=== PATIENT | female | born 1990 | race Caucasian/White ===

== ENCOUNTER 2016-11-26 07:22 | Inpatient (IN) | payer BC ==
[~2016-11-26] VITALS: Ht 160 cm; Wt 85.3 kg
[2016-11-26] VITALS (9 sets, daily range): BP systolic 94–144; RESP 18–20; TEMP 99.6; Ht 160 cm; Wt 85.3 kg
[2016-11-26] MEDS ORDERED: PROMETHAZINE 25 MG/ML VIAL IV PRN (07:30)
[2016-11-26] MEDS ORDERED: FAMOTIDINE 20 MG INJ IV PRN (07:30)
[2016-11-26] MEDS ORDERED: CEFAZOLIN (LD/OB) 100 ML IV PRN (07:30)
[2016-11-26] MEDS ORDERED: OXYTOCIN 15 UNITS/250 ML NS 15 UNITS in PART FILL PIGGYBACK 1 EA IV SCH (07:30)
[2016-11-26] MEDS ORDERED: OXYTOCIN 15 UNITS/250 ML NS 250 ML IV SCH (07:30)
[2016-11-26] MEDS ORDERED: LIDOCAINE 1% 30 ML PF INFILTRATE ONE (07:30)
[2016-11-26] MEDS ORDERED: TERBUTALINE 1 MG/ML VIAL SUBQ PRN (07:30)
[2016-11-26] MEDS ORDERED: LIDOCAINE 1% BUFFERED 1 ML SYR INTRADERM PRN (07:30)
[2016-11-26] MEDS ORDERED: ACETAMINOPHEN 325 MG TAB PO PRN (07:30)
[2016-11-26] MEDS ORDERED: FAMOTIDINE 20 MG TAB PO PRN (07:30)
[2016-11-26] MEDS ORDERED: ONDANSETRON 4 MG VIAL IV PRN (07:30)
[2016-11-26] MEDS ORDERED: METOCLOPRAMIDE 10 MG/2 ML VIAL IV PUSH PRN (07:30)
[2016-11-26] MEDS ORDERED: ALU/MAG/SIM 30 ML UDC PO PRN (07:30)
[2016-11-26] MEDS ORDERED: MORPHINE 5 MG/1 ML VIAL IV PRN (07:30)
[2016-11-26] MEDS ORDERED: OXYTOCIN 15 UNITS/250 ML NS 500 ML IV ONE (08:40)
[2016-11-26] MEDS ORDERED: LIDOCAINE 1% 30 ML PF ONE (08:41)
[2016-11-26] MEDS ORDERED: ROPIV/FENT 0.2%-2MCG/ML 100 ML EPIDURAL ONE (08:55)
[2016-11-26] MEDS ORDERED: FENTANYL 100 MCG/2 ML AMP ONE (08:56)
[2016-11-26] MEDS: LACT RINGERS 1,000 ML IV SCH ×2 (09:04→10:00)
[2016-11-26] MEDS ORDERED: SODIUM CHLORIDE 0.9% 500 ML IV PRN (09:55)
[2016-11-26] MEDS ORDERED: ROPIV/FENT 0.2%-2MCG/ML 100 ML EPIDURAL SCH (09:55)
[2016-11-26] MEDS ORDERED: FENTANYL 100 MCG/2 ML AMP EPIDURAL ONE (09:55)
[2016-11-26] MEDS ORDERED: LACT RINGERS 500 ML IV PRN (09:55)
[2016-11-26] MEDS ORDERED: LACT RINGERS 500 ML IV ONE (09:55)
[2016-11-26] MEDS: MISOPROSTOL 200 MCG TAB PO SCH ×2 (16:40→20:07)
[2016-11-26] MEDS ORDERED: DERMOPLAST SPRAY TOPICAL PRN (17:10)
[2016-11-26] MEDS ORDERED: OXYTOCIN 15 UNITS/250 ML NS 250 ML IV ONE (17:10)
[2016-11-26] MEDS ORDERED: ASTRINGENT MED PADS 40'S TOPICAL PRN (17:10)
[2016-11-26] MEDS ORDERED: MAG HYDROX 30 ML UDC PO PRN (17:10)
[2016-11-26] MEDS ORDERED: MEASLES,MUMPS,RUBELLA VAC SUBQ.VACC ONE (17:10)
[2016-11-26] MEDS ORDERED: ZOLPIDEM 5 MG TAB PO PRN (17:10)
[2016-11-26] MEDS ORDERED: TDaP 0.5 ML VIAL IM.VACC ONE (17:10)
[2016-11-26] MEDS ORDERED: MISOPROSTOL 100 MCG TAB ONE (17:46)
[2016-11-26] MEDS: Ibuprofen 600 MG TAB PO SCH (18:02)
[2016-11-26] MEDS ORDERED: **ONLY ANESTEHSIA MAY ORDER OPIATES WHILE ON EPIDURAL XX SCH (20:00)
[2016-11-27] MEDS: Ibuprofen 600 MG TAB PO SCH ×5 (00:44→23:22)
[2016-11-27 02:30] VITALS: BP_SYST 118; RESP 18; TEMP 98.6
[2016-11-27 05:39] VITALS: BP_SYST 121; RESP 20; TEMP 97.6
[2016-11-27] MEDS: DOCUSATE SOD 100 MG CAP PO SCH (09:09)
[2016-11-27 10:30] VITALS: BP_SYST 116; RESP 16; TEMP 97.7
[2016-11-27 14:03] VITALS: BP_SYST 123; RESP 18; TEMP 97.6
[2016-11-27 17:38] VITALS: BP_SYST 117; RESP 18; TEMP 97.9
[2016-11-28 05:13] VITALS: BP_SYST 120; RESP 16; TEMP 97.9
[2016-11-28] MEDS: Ibuprofen 600 MG TAB PO SCH (05:44)
[2016-11-28] MEDS: DOCUSATE SOD 100 MG CAP PO SCH (09:03)
[2016-11-28 09:28] VITALS: BP_SYST 125; TEMP 97.7
[2016-11-28 09:29] VITALS: RESP 16
[2016-11-28 10:30] VITALS: BP_SYST 125; RESP 16; TEMP 97.7
== END 2016-11-28 11:58 | disposition home or self-care (01) | DRG 775 ==
LOC: LD 07:22 → OB 20:18
PROVIDERS: ADMIT Obstetrics & Gynecology Reproductive Endocrinology; ATTEND Obstetrics & Gynecology Reproductive Endocrinology
PROC: 10D07Z6 Extraction of Products of Conception, Vacuum, Via Natural or Artificial Opening (ICD-10-PCS; principal; 2016-11-26)
PROC: 3E033VJ Introduction of Other Hormone into Peripheral Vein, Percutaneous Approach (ICD-10-PCS; 2016-11-26)
PROC: 10907ZC Drainage of Amniotic Fluid, Therapeutic from Products of Conception, Via Natural or Artificial Opening (ICD-10-PCS; 2016-11-26)
DX: O32.8XX0 Maternal care for other malpresentation of fetus, not applicable or unspecified (principal); O66.5 Attempted application of vacuum extractor and forceps; Z3A.39 39 weeks gestation of pregnancy; Z37.0 Single live birth
CPT/HCPCS: 85025; 86850; 86900; 86901; 86970